=== PATIENT | female | born 1975 | race Caucasian/White ===

== ENCOUNTER 2016-07-08 06:05 | Day surgery (SDC) | payer BC ==
[~2016-07-08 06:05] MED LIST: Buffered Lidocaine 0.9% SYRIN* 5 ML/SYR SYRINGE ONE; Sodium Citrate/Citric Acid* 15 ML UDC ONE; Sodium Citrate/Citric Acid* 15 ML UDC PO ONE; ceFOXitin 2 GM IVPREMIX* 2 GM/50 ML BAG ONE
[2016-07-08 06:15] LABS: Manual Entry Verification ROB0080; UR Preg Internal Control QC Line Present
[2016-07-08 07:04] LABS: Hematocrit 40 % (35-47); Hemoglobin 12.9 g/dl (12.0-16.0); Mean Corpuscular HGB Conc 32 g/dl (31-36); Mean Corpuscular Hemoglobin 26 pg (27-31); Mean Corpuscular Volume 81 fL (80-97); Mean Platelet Volume 10 um3 (7.4-10.4); Red Cell Distribution Width 16 % (10.5-15); White Blood Count 7.6 10^3/ul (3.5-10.8)
[2016-07-08] MEDS ORDERED: fentaNYL* 50 MCG/ML 2 ML VIAL (100 MCG VIAL) ONE (07:50)
[2016-07-08] MEDS ORDERED: Dexamethasone IV* 4 MG/ML 1 ML (4 MG) ONE (07:51)
[2016-07-08] MEDS ORDERED: Lidocaine 2% PF * 5 ML VIAL ONE (07:51)
[2016-07-08] MEDS ORDERED: Propofol* 10 MG/ML 20 ML BTL IV PUSH ONE (07:51)
[2016-07-08] MEDS ORDERED: Ondansetron INJ* 2 MG/ML VIAL IV PRN (08:12)
[2016-07-08] MEDS ORDERED: Ketorolac INJ* 30 MG/ML 1 ML VIAL IV PRN (08:12)
[2016-07-08] MEDS ORDERED: fentaNYL* 50 MCG/ML 2 ML VIAL (100 MCG VIAL) IV PRN (08:12)
[2016-07-08] MEDS ORDERED: Ibuprofen TAB* 600 MG ONE (09:05)
[2016-07-08] MEDS ORDERED: Ondansetron INJ* 2 MG/ML VIAL ONE (09:09)
[2016-07-08 09:38] VITALS: BP 118/84
--- NOTE | 2016-07-09 00:38 | OP ---
DATE OF OPERATION: 07/08/16 - [facility] DATE OF : 71 SURGEON: Yaenth Candelaria MD FLY FISHING GUIDE: None. ANESTHESIOLOGIST: Marino Aguilar DO ANESTHESIA: General. PRE-OP DIAGNOSIS: Menorrhagia. POST-OP DIAGNOSIS: Menorrhagia. OPERATIVE PROCEDURE: Dilation and curettage, hysteroscopy, and NovaSure endometrial ablation. ESTIMATED BLOOD LOSS: Minimal. URINE OUTPUT: 200 cc of clear yellow urine. FLUIDS: 900 cc of crystalloid. FINDINGS: Revealed a normal uterine cavity with small endometrial polyp near the fundus, normal tubal ostia seen on the right and left. Uterus sounded to 10 cm. Cervical length was 5 cm. Uterine cavity length was 5 cm. Uterine width was 4.6 cm. Ohms 127, cycle length 2 minutes. Excellent application post ablation with hysterectomy noted. Excellent coverage of endometrial surface with ablation. COMPLICATIONS: None apparent. DISPOSITION: Stable to recovery room. DESCRIPTION OF PROCEDURE: The patient was placed in dorsal lithotomy position. Legs were placed in [place] [employer] stirrups. The perineum and vagina were prepped and draped in a sterile standard fashion. The patient was identified with universal protocol for correct position, patient, and procedure. A self- cath was then applied for drainage of clear yellow urine, 200 cc. This was then removed. A sterile speculum was inserted. Cervix was visualized, grasped on the anterior lip with a single-tooth tenaculum, dilated to #6 Hegar dilator. The cervical length was noted to be 5 cm. A hysteroscope was inserted, confirming no evidence of uterine septum and normal uterine cavity. There is a small endometrial polyp noted near the left fundus. The left and right tubal ostia were noted to have normal appearance. The uterine cavity itself had no excrescences, masses, or evidence or leiomyomas. Hysteroscope was then removed. The uterine cavity was then sounded to 10 cm giving a uterine length of 5 cm. The NovaSure ablative device was then removed from packaging and system was purged with CO2. The NovaSure ablative device was seated using standard technique. The CO2 test passed, the ablative device was then deployed and a 2-minute cycle was noted at 127 ohms. After completion of the cycle, NovaSure ablative device was removed using standard technique. Hysteroscope was then inserted confirming excellent application of the ablative device, confirming both anterior and posterior surfaces of the endometrial cavity with good cautery effect. Hysteroscope was then removed, single tooth tenaculum was removed. Sterile speculum was removed. The patient was then returned to dorsal lithotomy position and extubated in a standard fashion, taken to recovery room in stable condition. All sponge, instrument, and blade counts were correct throughout the case. The patient tolerated the procedure well and went to the recovery room in stable condition. [id number] #: [id number]
== END 2016-07-08 09:56 | disposition home or self-care (01) ==
LOC: OR 06:05
PROVIDERS: ATTEND Obstetrics & Gynecology
DX: N92.6 Irregular menstruation, unspecified (principal); Z88.1 Allergy status to other antibiotic agents; Z88.0 Allergy status to penicillin
CPT/HCPCS: 36415; 81025; 85025; 86850; 86900; 86901; 88305; A9270-GY; J0694; J1100; J2405; J2704; J3010

== ENCOUNTER 2016-08-05 07:40 | Day surgery (SDC) | payer BC ==
[~2016-08-05 07:40] MED LIST changes: +Buffered Lidocaine 0.9% SYRIN* 5 ML/SYR SYRINGE INTRADERM ONE; +Famotidine IV* 10 MG/ML 2 ML (20 mg) IV ONE; +Famotidine IV* 10 MG/ML 2 ML (20 mg) ONE; +Morphine INJ* 2 MG/ML 1 ML SYRINGE IV PRN; +PROCHLORPERAZINE INJ 5 MG/ML 2 ML VIAL IV PRN; +Scopolamine 1.5 mg* PATCH ONE; +Scopolamine 1.5 mg* PATCH TRANSDERM ONE; -Sodium Citrate/Citric Acid* 15 ML UDC ONE; -Sodium Citrate/Citric Acid* 15 ML UDC PO ONE; -ceFOXitin 2 GM IVPREMIX* 2 GM/50 ML BAG ONE; +fentaNYL* 50 MCG/ML 2 ML VIAL (100 MCG VIAL) IV PRN; +oxyCODONE TAB* 5 MG TAB PO PRN
[2016-08-05] MEDS ORDERED: Cocaine 4% TOPICAL* 4 ML TOP.SOLN ONE (07:44)
[2016-08-05] MEDS ORDERED: Bacitracin OINTMENT* 1 TUBE ONE (07:45)
[2016-08-05] MEDS ORDERED: Lidocain 1% EPI 1:100,000 * 30 ML MDV ONE ×2 (07:46→10:50)
[2016-08-05] MEDS ORDERED: Ondansetron INJ* 2 MG/ML VIAL ONE (07:52)
[2016-08-05] MEDS ORDERED: Scopolamine 1.5 mg* PATCH ONE (07:52)
[2016-08-05] MEDS ORDERED: Clindamycin 900 MG IVPREMIX(* 900 MG/50 ML SDV IV ONE (07:52)
[2016-08-05] MEDS ORDERED: Dexamethasone IV* 4 MG/ML 1 ML (4 MG) ONE (07:52)
[2016-08-05] MEDS ORDERED: Oxymetazoline 0.05% NASAL SPR* 15 ML BTL ONE (08:01)
[2016-08-05] MEDS ORDERED: fentaNYL* 50 MCG/ML 2 ML VIAL (100 MCG VIAL) ONE (08:17)
[2016-08-05] MEDS ORDERED: Midazolam* 1 MG/ML 5 ML VIAL (5 MG) ONE (08:18)
[2016-08-05] MEDS ORDERED: KETAMINE HCL* 50 MG/ML 10 ML VIAL ONE (08:18)
[2016-08-05] MEDS ORDERED: Atracurium* 10 MG/ML 10 ML VIAL ONE (08:34)
[2016-08-05] MEDS ORDERED: Artificial Tear OPHTH.OINT* 3.5 GM ONE (08:54)
[2016-08-05] MEDS ORDERED: PROCHLORPERAZINE INJ 5 MG/ML 2 ML VIAL ONE ×2 (09:19→11:48)
[2016-08-05] MEDS ORDERED: Propofol* 10 MG/ML 20 ML BTL IV PUSH ONE (09:19)
[2016-08-05] MEDS ORDERED: Lidocaine 2% PF * 5 ML VIAL ONE (09:19)
[2016-08-05 12:34] VITALS: BP 118/73
[2016-08-08] MEDS ORDERED: Scopolomine PATCH Remove* 1 NOTE MISC PATCH OFF ONE (06:00)
== END 2016-08-05 12:51 | disposition home or self-care (01) ==
LOC: OREAST 07:40
PROVIDERS: ATTEND Plastic Surgery
DX: J34.2 Deviated nasal septum (principal); J34.89 Other specified disorders of nose and nasal sinuses; J34.3 Hypertrophy of nasal turbinates; J30.2 Other seasonal allergic rhinitis; Z88.0 Allergy status to penicillin; Z88.2 Allergy status to sulfonamides
CPT/HCPCS: 81025; A9270-GY; J0780; J1100; J2250; J2405; J2704; J3010